=== PATIENT | male | born 1980 | race Hispanic/Latino ===

== ENCOUNTER 2024-09-20 17:36 | Emergency (ER) | payer OTHER ==
[2024-09-20] MEDS ORDERED: Ketorolac Tromethamine 30 MG (1 mL) VIAL ONE (19:51)
[2024-09-20] MEDS ORDERED: Dexamethasone 10 MG/ML VIAL ONE (19:51)
[2024-09-20] MEDS ORDERED: HYDROcodone/Acetaminophen 10/325 mg Tablet ONE (19:51)
== END 2024-09-20 21:00 | disposition home or self-care (01) ==
LOC: CSHERS 17:36
DX: M54.2 Cervicalgia (principal); F17.210 Nicotine dependence, cigarettes, uncomplicated; I10 Essential (primary) hypertension
CPT/HCPCS: 72125; 96372; J1100; J1885